=== PATIENT | female | born 1985 | race Caucasian/White ===

== ENCOUNTER 2017-11-23 14:09 | Emergency (ER) | payer OTHER ==
[~2017-11-23] VITALS: Ht 172.7 cm; Wt 113.6 kg
[2017-11-23] MEDS ORDERED: LIDOCAINE HCL 5% TRANSDERMAL PATCH TD ONE (16:45)
[2017-11-23] MEDS ORDERED: METHOCARBAMOL 500 MG TABLET PO ONE (16:45)
[2017-11-23 17:42] VITALS: BP 132/80
== END 2017-11-23 18:44 | disposition home or self-care (01) ==
LOC: EMS 14:10
DX: S16.1XXA Strain of muscle, fascia and tendon at neck level, initial encounter (principal); R03.0 Elevated blood-pressure reading, without diagnosis of hypertension; M54.5 Low back pain; V43.62XA Car passenger injured in collision with other type car in traffic accident, initial encounter; Y93.89 Activity, other specified; Y92.410 Unspecified street and highway as the place of occurrence of the external cause; Y99.8 Other external cause status
CPT/HCPCS: 72040; 99284